=== PATIENT | male | born 1960 | race Caucasian/White ===

== ENCOUNTER 2020-03-04 18:08 | Inpatient (IN) | payer BC ==
[~2020-03-04] VITALS: Ht 180.3 cm; Wt 122.5 kg
--- NOTE | 2020-03-04 18:15 | NUR ---
PT BIBA [facility] FOR ALOC. PER MEDIC, PT WAS FOUND IN [facility] ALOC. PT BASELINE NORMALLY AAOX4 AND AMBULATORY PER STAFF. STAFF AT [facility] CHECKED REPORTS PT'S GLUCOSE WAS "HI." PT ARRIVED TO ED ON 2L O2 VIA N/C WITH IV ON LFA. PT WAS GIVEN NARCAN BY MEDICS BUT NO RESPONSE. GCS 12. PT APPEARS AGITATED WITH RAPID RESPIRATIONS AND HEART RATE. GLUCOSE UPON ARRIVAL WAS 217. MD NOTIFIED. PT'S ABDOMEN DISTENDED UPON PALPATION. PER MEDIC, PT WAS ADMITTED TO [facility] ON THE FOR DTS. NO 5150 ON HAND UPON ARRIVAL. PLACED ON FULL CM. AT BEDSIDE FOR MSE
[2020-03-04 18:16] VITALS: Ht 180.3 cm; Wt 122.5 kg
[2020-03-04 19:40] LABS: BASOPHIL % 0.3 % (0-2); PLATELET COUNT 198 x10^3mcL (130-400)
[2020-03-04 19:44] LABS: RED CELL DISTRIBUTION WIDTH 20.2 % (11.5-14.5)
[2020-03-04 19:46] LABS: CALCIUM 8.4 mg/dL (8.5-10.1); CARBON DIOXIDE 32.1 mmol/L (21-32); CHLORIDE SERUM 103 mmol/L (98-107); CREATININE SERUM 1.2 mg/dL (0.7-1.3); GFR1 > 60 mL/min; GLUCOSE SERUM 204 mg/dL (74-106); POTASSIUM SERUM 3.7 mmol/L (3.5-5.1); SODIUM SERUM 138 mmol/L (136-145)
--- NOTE | 2020-03-04 19:50 | NUR ---
PT CAME FROM FACILITY DUE TO ALOC - PT NOTED TO BE SLEEPING/SNORING - PT NOTED TO AROUSE TO PAIN WHEN OBTAINING BLOOD - PT WENT TO CT AND NOTED TO OPEN EYES AND AROUSE TO VERBAL STIMULI - UNABLE TO UNDERSTAND PT WHEN ATTEMPTING TO TALK - PT NOTED TO BE ABLE TO PULL PANTS UP INDEPENDENTLY - PT RETURNED FROM CT AND PLACED BACK ON FLOOR SURFACER - PT NOTED TO OPEN EYES AND ATTEMPT TO TALK TO RN BUT UNABLE TO UNDERSTAND PT COMMUNICATION - UNKNOWN IF THIS IS PT BASELINE - OBSERVED PT TO BE ABLE TO PULL SELF UP TO SITTING POSITION USING STRETCHER SIDE RAILS - NAD NOTED - ABCS INTACT WITH RESPIRIATIONS NOTED TO BE EVEN AND UNLABORED - PT ON 2L O2 NC - PT NOTED TO BE ABLE TO MOVE ALL EXTREMITIES WITH ROM WNL - PT IS AWAKE/ALERT.
[2020-03-04 19:51] LABS: ALBUMIN 2.8 g/dL (3.4-5.0); ALKALINE PHOSPHATASE 59 U/L (46-116); ALT/SGPT 39 U/L (16-63); AST/SGOT 13 U/L (15-37); BILIRUBIN TOTAL 0.2 mg/dL (0.20-1.00); CHOLESTEROL 173 mg/dL (<200); TOTAL PROTEIN, SERUM 5.9 g/dL (6.4-8.2)
[2020-03-04 19:56] LABS: rbc morphology (normal/abnorm) ABNORMAL (NORMAL)
[2020-03-04 20:38] LABS: UA SPECIFIC GRAVITY >=1.030 (1.005-1.035); microscopic required? YES; urine erythrocyte 1+ (NEGATIVE)
--- NOTE | 2020-03-04 20:52 | NUR ---
PATIENT IS COVID NEGATIVE. DR. WILL MADE AWARE.
[2020-03-04] MEDS ORDERED: ASPIRIN ADULT L81 M3 PO (20:53)
[2020-03-04] MEDS ORDERED: ATORVASTATIN CA10 M1 PO (20:53)
[2020-03-04] MEDS ORDERED: POLYETHYLE17 GM/Dos4 PO (20:54)
[2020-03-04] MEDS ORDERED: MUCINEX600 MG PO (20:54)
[2020-03-04] MEDS ORDERED: STIOLTO RESPIMA1 SPR IH (20:55)
[2020-03-04] MEDS ORDERED: THIAMINE HCL100 MG PO (20:55)
[2020-03-04] MEDS ORDERED: LEXAPRO20 MG PO (20:55)
[2020-03-04] MEDS ORDERED: SEROQUEL300 MG PO (20:56)
[2020-03-04] MEDS ORDERED: AUGMENTIN1 TA1 PO (20:58)
[2020-03-04] MEDS ORDERED: TYLENOL ARTHRI650 MG PO (20:58)
[2020-03-04] MEDS ORDERED: MOM PO (20:59)
[2020-03-04] MEDS ORDERED: MP PO (20:59)
[2020-03-04] MEDS ORDERED: AMBIEN5 MG PO (21:00)
[2020-03-04] MEDS ORDERED: ATIVAN1 MG PO (21:00)
[2020-03-04] MEDS ORDERED: NORCO1 TA2 PO (21:00)
[2020-03-04] MEDS ORDERED: PROAIR RES117 MCG/Ac INH (21:00)
[2020-03-04] MEDS ORDERED: DOCUSATE SODIU100 MG PO (21:01)
[2020-03-04 21:09] LABS: AMPHETAMINE QUAL UR NONE DETECTED (See below)
[2020-03-04 22:45] VITALS: BP 139/78
--- NOTE | 2020-03-04 22:56 | NUR ---
EVALUATED PT TO SEE IF HE NEEDS CPAP. PT ALOC. DIDNT FOLLOW COMMANDS. WILL RE-EVALUATE PT IN A COUPLE HOURS TO SEE IF THERE IS ANY IMPROVEMENT ON MENTAL STATUS.
--- NOTE | 2020-03-04 23:19 | NUR ---
RECEIVED PT FROM ER, PT ADMIT FOR METABOLIC ENCEPHALOPATHY. PT IS VERY LETHARGIC, BUT AROUSE TO PAIN, BUT UNABLE TO UNDERSTAND PT SPEECH. AND PT FALL INTO SLEEP RIGHT AWAY, UNABLE TO GET ANY INFORMATION FROM PT. UNABLE TO GET EMERGENCY VETERINARY VIROLOGIST INFORMATION. CALLED TO [facility]. SPOKE TO ALFONSO. UNABLE TO GET ANY INFOMRATION FROM [facility]. STAFF STATE CALL BACK TOMORROW TO MEDICAL RECORD OFFICE. GET ALL ADMISSION INFORMATION FROM TRANSFER DOCUMENT. LUNG SOUND DIM JOSH. NO S/S OF SOB. PT IS ON 2L/ MIN O2 VIA NC. PO2 98%. PT IS ON TELE 34, ST, NO S/S OF CHEST PAIN. BOWEL SOUND PRESENT ALL 4 QUADRANTS, DISTENTED. PEDAL PULSE PRESENT BOTH FEET, +2 EDEMA BLE. THERE ARE ERYTHEMA ON BOTH LEGS WITH SMALL SKIN TEAR AT TOP. IV AT LEFT FA, NO LEAKING, NO INFILTRATION. ALL ADLS ASSIST, ALL NEED MET, CALL LIGHT IN REACH, WILL CONTINUE TO MONITOR.
--- NOTE | 2020-03-04 23:30 | NUR ---
RECEIVED PT FROM RESOURCE NURSE, PT LETHARGIC, SPEECH MUMBLED AND HARD TO UNDERSTAND, PT SEEMS CONFUSED. RESPIRATION E/U ON 2 LPM OF O2 VIA NC, NO RESPIRATORY DISTRESS AT THIS TIME. IV TO LFA INTACT, SL AT THIS TIME, NO ERYTHEMA, NO INFILTRATION. SAFETY PRECAUTIONS IN PLACE, ROOM CLOSE TO NURSES STATION. CALL BUTTON WITHIN REACH, WILL CONTINUE TO MONITOR.
--- NOTE | 2020-03-05 00:42 | NUR ---
BLOOD SUGAR 163. PT HAS NOT ATE AND IS NOT ON ANY IV FLUIDS. SPOKE WITH MD. DR SERRANO, PER DOCTOR HOLD INSULIN COVERAGE TONIGHT. BLE ARE RED, WARM TO TOUCH, AND TENDER/ PAINFUL PER PT. UPDATED DR. SERRANO AND PER DOCTOR SHE WILL PUT IN AN ORDER FOR IV FLUIDS AND IV ANTIBIOTICS. WILL CONTINUE TO MONITOR.
[2020-03-05 02:24] VITALS: BP 139/78
--- NOTE | 2020-03-05 04:05 | NUR ---
RE-EVALUATED PT FOR CPAP THERAPY AND HE IS AWAKE AND ALERT. PT IS FOLLOWING COMMANDS AND ANSWERING TO QUESTIONS. PT STATED HE JUST STARTED WEARING CPAP AT NIGHT. PLACED PT ON CPAP FOR THE NIGHT AND HE IS TOLERATING WELL. CURRENT SETTINGS ARE CPAP 5, 30% FIO2.
--- NOTE | 2020-03-05 04:46 | NUR ---
PT COMPLAINING OF PAIN, PRN TORADOL IVP INEFFECTIVE. PT STATED HE USUALLY TAKES [place] 10/ 325 PO AT HOME AND IT IS INEFFECTIVE. DR. VELAZCO CALLED X 3 AND PAGED TO INFORM. PT ALSO HAVING ANXIETY AND TAKES ATIVAN 1 MG. WILL CONTINUE TO TRY TO GET A HOLD OF RESIDENT.
--- NOTE | 2020-03-05 05:40 | NUR ---
NORCO 10/ 325 GIVEN PER ORDER. WILL CONTINUE TO MONITOR.
[2020-03-05 05:48] VITALS: BP 135/72
[2020-03-05 06:35] LABS: BASOPHIL % 0.1 % (0-2); PLATELET COUNT 206 x10^3mcL (130-400)
[2020-03-05 06:51] LABS: CALCIUM 8.4 mg/dL (8.5-10.1); CARBON DIOXIDE 32.9 mmol/L (21-32); CHLORIDE SERUM 103 mmol/L (98-107); GFR1 > 60 mL/min; GLUCOSE SERUM 176 mg/dL (74-106); MAGNESIUM 1.7 mg/dL (1.8-2.4); PHOSPHOROUS 1.6 mg/dL (2.5-4.9); POTASSIUM SERUM 3.5 mmol/L (3.5-5.1); SODIUM SERUM 140 mmol/L (136-145)
[2020-03-05 07:03] LABS: RED CELL DISTRIBUTION WIDTH 20.5 % (11.5-14.5)
--- NOTE | 2020-03-05 07:30 | NUR ---
RECEIVED PT FROM PATTERN PUNCHER, PT IS SLEEPING THIS TIME. STABLE. NO SOB NOTED. DENIES ANY PAIN THIS TIME. AROUSABLE WITH VERBAL STIMULI. ORIENTED X3. SAFTEY PRECAUTIONS ARE IN PLACE. WILL MONITOR.
--- NOTE | 2020-03-05 07:30 | NUR ---
PT IN BED EATING BREAKFAST. PT EXPRESSING SLIGHT RELIEF OF PAIN FROM NORCO, I EDUCATED HIM ON THE ORDER'S FREQUENCY OF THE NORCO MEDICATION. PT UNDERSTOOD. PT USING ICE PACKS TO LOWER BODY TEMPERATURE. AM BATCH PLANT SUPERVISOR TOOK VITAL SIGNS, TEMPERATURE DECREASED TO WNL. PT STILL EXPERIENCING ANXIETY, MORNING RESIDENT WAS INFORMED OF PT'S CONCERN/ HOME MEDICATION OF ANTIVAN 1 MG PRN AND GABAPENTIN. AM RESIDENT TO F/U WITH ORDERS. ALL CONCERNS ADDRESSED, RESPIRATIONS E/U, REPORT GIVEN TO AM NURSE, CARE ENDORSED TO AM NURSE AT THIS TIME.
--- NOTE | 2020-03-05 07:45 | NUR ---
PT IS STABLE. SITTING UP IN THE BED AND EATING BREAKFAST.
[2020-03-05 08:14] VITALS: BP 100/64
--- NOTE | 2020-03-05 11:52 | NUR ---
PT STILL C/O BLE PAIN, 5/10 EVEN AFTER THE NORCO PO 5/325MG. INFORMED . HE SAID TO GIVEN ANOTHER DOSE OF 5/325MG NORCO AND GIVEN ORDER. PT IS STABLE. WILL REASSESS.
[2020-03-05 12:10] VITALS: BP 120/59
--- NOTE | 2020-03-05 12:52 | NUR ---
PT IS SLEEPING THIS TIME. NO SIGNS OF ANY PAIN.
--- NOTE | 2020-03-05 14:00 | NUR ---
PT RESTING IN BED COMFORTABLE. SLEEPING THIS TIME.
--- NOTE | 2020-03-05 14:57 | NUR ---
PT C/O ANXIETY. ADMINISTERED ATIVAN 1MG PO ORDERED. WILL MONITOR. PT IS STABLE.
[2020-03-05 16:21] VITALS: BP 142/84
--- NOTE | 2020-03-05 17:16 | NUR ---
PT TEMP IS 101.4. TYLENOL 650MG PO GIVEN ORDERED. WILL RECHECK THE TEMP AFTER AN HOUR. NORCO 10/325 MG PO WAS GIVEN FOR PT'S BLE PAIN,01/30 AT 1701. WILL REASSESS.
--- NOTE | 2020-03-05 17:50 | NUR ---
PT CALLED AND SAID HE IS HAVING SOB, PT TOOK HIS O2 OFF. SPO2 92% IN RA AND PUT O2 2L BACK ON AND SPO2 96% IN 2L N/C. PT IS HAVING ANXIETY AND WITHDRAWAL SYMPTOMS. HR FLUTUATING FROM 130'S TO 140. DENIES CHEST PAIN. INFORMED ABOUT THAT. HE CAME AND ASSESS THE PT. HE SAID PT HAVING WITH DRAWAL SYMPTOMS AND HE DOESNOT WANT TO GIVE MORE ATIVAN. PT RECEIVED ATIVAN PO 1MG AT 1457. GAVE COMFORTABLE POSITION AND RELAXATION TECH. WILL MONITOR.
--- NOTE | 2020-03-05 18:16 | NUR ---
PT TEMP IS 100.4 THIS TIME AFTER TYLENOL PO. COOLING MEASURES ON. WILL RECHECK AGAIN. PT SOB GETTING BETTER, HR 128 THIS TIME. RESIDENT DOCTOR AWARE. DENIES CHEST PAIN. WILL MONITOR.
--- NOTE | 2020-03-05 19:02 | NUR ---
PT RESTING IN BED, REMAINS STABLE. DENIES ANY PAIN. SPO2 95% IN O2 2L VIA N/C. GAVE REPORT TO SCALE OPERATOR NURSE.
--- NOTE | 2020-03-05 19:55 | NUR ---
RECEIVED PT FROM AM NURSE AT THIS TIME, AA/O X 4 ABLE TO MAKE NEEDS KNOWN, CLEAR SPEECH, DENIES HEADACHE/ DIZZINESS. TELE MONITOR #34, ST. DENIES CHEST PAIN/ CHEST PRESSURE. PULSES PALPABLE, 2+ EDEMA TO BLE. LUNG SOUNDS DIMINISHED TO BLL. RESPIRATIONS E/U ON 2 LPM OF O2 VIA NC. ACTIVE BS X 4 QUADS, ABD FIRM AND DISTENDED. VOIDS USING URINAL. WEAKNESS TO BLE, REDNESS TO BLE, WARM TO TOUCH. IV TO LFA INTACT, SL, FLUSHING WELL. NO ERYTHEMA/ NO INFILTRATION DENIES PAIN AND ANXIETY AT THIS TIME. CALL BUTTON WITHIN REACH, WILL CONTINUE TO MONITOR.
[2020-03-05 20:06] VITALS: BP 131/71
--- NOTE | 2020-03-05 21:00 | NUR ---
TEMPERATURE OF 100.4. UNABLE TO GIVE TYLENOL UNTIL 0100 AM PER EMAR, ORDER IS Q8. ICE PACKS AND COOLING MEASURES APPLIED. WILL CONTINUE TO MONITOR.
--- NOTE | 2020-03-05 22:50 | NUR ---
RE-CHECKED TEMPERATURE AT 2250, TEMPERATURE DECREASED TO 98.9. WILL CONTINUE TO MONITOR.
--- NOTE | 2020-03-05 23:15 | NUR ---
PT COMPLAINED OF PAIN TO BLE AND LOWER BACK PAIN MEDICINE GIVEN PER EMAR. WILL CONTINUE TO MONITOR.
--- NOTE | 2020-03-06 00:15 | NUR ---
PT IN BED RESTING WITH EYES CLOSED, BUT EASILY AROUSABLE. RESPIRATIONS E/U ON 2 LPM OF O2 VIA NASAL CANNULA. NO S/S OF PAIN OR DISTRESS. FALL PRECAUTIONS IN PLACE, WILL CONTINUE TO MONITOR.
[2020-03-06 04:30] VITALS: BP 100/72
--- NOTE | 2020-03-06 05:30 | NUR ---
PT COMPLAINED OF PAIN, NORCO GIVEN PER EMAR.
--- NOTE | 2020-03-06 06:43 | NUR ---
PT COMPLAINED OF ANXIETY, PRN ATIVAN GIVEN EMAR. PT SLEPT IN INTERVALS THROUGHOUT THE NIGHT, BUT EASILY AROUSABLE. RESPIRATIONS E/U ON 2 LPM OF O2 VIA NC, SPO2 96%. ALL NEEDS MET AT THIS TIME, CALL BUTTON WITHIN REACH, WILL ENDORSE CARE TO AM NURSE.
[2020-03-06 07:30] VITALS: BP 125/71
[2020-03-06 07:34] LABS: BASOPHIL % 0.2 % (0-2); PLATELET COUNT 199 x10^3mcL (130-400)
--- NOTE | 2020-03-06 07:41 | NUR ---
REPORT TAKEN FROM FOOD ADVISER NURSE, PATIENT FOUND TO BE AWAKE AND ALERT, NO ACUTE DISTRESS OBSERVED OR REPORTED. PATIENT IS REPORTS DISCOMFORT IN HIS LEGS, EDEMA AND ERYTHEMA OBSERVED TO BLE. PATIENT WAS MEDICATED PRIOR TO MY SHIFT FOR PAIN, BUT PATIENT REQUEST INCREASED FREQUENCY, WILL CONSULT PROVIDER.
[2020-03-06 08:02] LABS: RED CELL DISTRIBUTION WIDTH 20.7 % (11.5-14.5)
[2020-03-06 08:18] LABS: CALCIUM 8.2 mg/dL (8.5-10.1); CARBON DIOXIDE 32.5 mmol/L (21-32); CHLORIDE SERUM 98 mmol/L (98-107); GFR1 > 60 mL/min; GLUCOSE SERUM 105 mg/dL (74-106); PHOSPHOROUS 2.5 mg/dL (2.5-4.9); POTASSIUM SERUM 3.7 mmol/L (3.5-5.1); SODIUM SERUM 136 mmol/L (136-145)
--- NOTE | 2020-03-06 10:27 | NUR ---
IV ABX SCHEDULED FOR 1000 HAS NOT BEEN DELIVERED BY PHARMACY AT THIS TIME, WILL CALL AND GIVE WHEN DELIVERED TO UNIT
--- NOTE | 2020-03-06 10:58 | NUR ---
PATIENT AMBULATED TO RESTROOM FOR A BM. WHEN HE RETURNED TO THE BED HE REPORTED SOB AND PAIN IN LOWER LEGS. PATIENT PUT ON 3 LITERS OF O2 VIA NC, VITALS ASSESSED AT THAT TIME. HR 110 AND O2 SAT 97%. PATIENT GIVEN TIME TO REST, WILL CONTINUE TO MONITOR.
[2020-03-06 11:11] LABS: rbc morphology (normal/abnorm) NORMAL (NORMAL)
--- NOTE | 2020-03-06 11:20 | NUR ---
I CALLED THE ER AT THIS TIME TO FIND OUT IF THE PATIENT LEFT A PAIR OF SHOES IN THE ER WHEN HE WAS ADMITTED. THE ED CHIEF ORDER DISPATCHER CHECKED LOST AND FOUND AND WAS NOT ABLE TO LOCATE THE SHOES. I ALSO CALLED [facility] TO SEE IF HE MAY HAVE LEFT THEM THERE BUT WAS UNABLE TO REACH A NURSE. AT THIS TIME THE SHOES ARE NOT ACCOUNTED FOR.
--- NOTE | 2020-03-06 12:00 | NUR ---
all accu checks are being used at this time and have been for the last 30 minutes, will check bs when machine is availible.
[2020-03-06 12:17] VITALS: BP 108/58
[2020-03-06 16:58] VITALS: BP 136/80
--- NOTE | 2020-03-06 18:18 | NUR ---
PATIENT WAS GIVEN BELONGINGS FROM GLASS SANDER
--- NOTE | 2020-03-06 19:49 | NUR ---
REPORT GIVEN TO GREASE REFINING SUPERVISOR NURSE, CARE ENDORSED
[2020-03-06 21:27] VITALS: BP 112/78
--- NOTE | 2020-03-07 00:04 | NUR ---
ATIVAN 1 MG PO GIVEN AT THIS TIME REQUESTED.BS CHECKED @ 128 MG/DL.SNACKS PROVIDED.WILL CONTINUE TO MONITOR.
--- NOTE | 2020-03-07 00:46 | NUR ---
ASSISTED TO BR AND HAD BM X1 TO SOFT STOOL.TOOK OVER PT'S CARE.WILL ADMINISTER DUE TRAZODONE AND SEROQUEL AT THIS TIME.
--- NOTE | 2020-03-07 02:47 | NUR ---
PT SLEEPING SOUNDLY AT THIS TIME.BREATHING EASY AND NON-LABORED.NO S/S OF PAIN OR DISCOMFORT.WILL CONTINUE TO MONITOR.
--- NOTE | 2020-03-07 03:04 | NUR ---
03/06/202029- received pt in bed sitting up. Introduced myself. Pt alert and oriented x3 -4 verbal. patient expressed not being happy with life. He stated that he was laid off at his last job with no pension and gratuity. Stated he is not rich and over all unhappy with his life. He c/o that he has leg pains- and that the dayshift did not give him any medications for pain and has been calling for [facility] for leg pains . However, he got all his pain medicatios up to date. Per off going nurse, patient is not due for pain medication untill 1999. I reassured him. He received [place] 10/325mg po for pain at 2019. Pt seems manipulative. Will continue to monitor his behaviour difficult and manipulative him. At 2019 patient was given [place] 10/325mg Po for pains. in no respiratory distress. Will continue to monitor behavior
--- NOTE | 2020-03-07 03:23 | NUR ---
2330- Pt was given IV Morphine Sulphate 2mg/1ml Iv. Pt exhibited some behavior issues-very manipulative, unappreciative and a complainant. He is always seeking for pain medicine even when, it is not yet time to receive pain medication. He complained that he was n't given all his Morphine IV one ml injection. It was clarified to him that he got all his 1ml solution pushed into his vein. Charge nurse was a witness that pt did get 1ml/2mg dose of morphine and all 1 ml went thru into his vein. Again 2minutes after the IV Morphine - pt c/o that the medicine was not effective. He was clarified and made aware that it takes atleast 15-30minutes to see the effect of the Iv push Morphine. Pt is not very trusting of the care - in the midst of the best care and all demands met. He likes to manipulate the nurses and cause division. Patient can never be pleased- in the midst of excellent care and all his demand being met and all request granted him. he is very belittling- and talks down and makes inferences-- wants to make sure some nurses enter trouble because he don't like them. he thinks he can pick one nurse in preference to the other based on their looks. Pt was seen and evaluated this shift by the psychiatrist- Dr Perez.
--- NOTE | 2020-03-07 04:49 | NUR ---
PT SLEPT WELL AFTER TRAZODONE AND SEROQUEL THAT WAS GIVEN EARLIER.NO S/S OF PAIN OR DISCOMFORT.NO ASE NOTED FROM ANCEF IV ATB.BREATHING EASY AND NON-LABORED.O2 @ 2L/MIN VIA N/C.ALL NEEDS MET.WILL CONTINUE TO MONITOR.
[2020-03-07 05:58] VITALS: BP 134/76
--- NOTE | 2020-03-07 07:15 | NUR ---
SEEN AOX3, NOT IN DISTRESS, TELE 34, ST, PALPABLE PULSES, BLE EDEMA, CTA ON BLF, 2LPM VIA NC, O2 SAT 97%, +BS, VOIDS FREELY, GENERALIZED WEAKNESS, AMBULATORY, SCAB AND REDNESS BLE, NO PAIN AT THIS TIME, IV INTACT LFA, NO REDNESS OR SWELLING,CALL LIGHT WITHIN REACH, BED AT LOWEST POSITION, SIDE RAILS UP.
[2020-03-07 07:35] VITALS: BP 136/70
[2020-03-07 07:59] LABS: BASOPHIL % 0.2 % (0-2); PLATELET COUNT 236 x10^3mcL (130-400)
[2020-03-07 08:15] LABS: CALCIUM 8.6 mg/dL (8.5-10.1); CARBON DIOXIDE 34.4 mmol/L (21-32); CHLORIDE SERUM 97 mmol/L (98-107); CREATININE SERUM 0.9 mg/dL (0.7-1.3); GFR1 > 60 mL/min; GLUCOSE SERUM 108 mg/dL (74-106); POTASSIUM SERUM 3.6 mmol/L (3.5-5.1); SODIUM SERUM 137 mmol/L (136-145)
--- NOTE | 2020-03-07 09:50 | NUR ---
MEDICATIONS GIVEN PER EMAR. ATIVAN PO GIVEN FOR ANXIETY. MORPHINE IVP GIVEN FOR LEG PAIN 04/01
--- NOTE | 2020-03-07 11:47 | NUR ---
CBG 109. NO INSULIN REQUIRED
[2020-03-07 12:47] VITALS: BP 115/80
--- NOTE | 2020-03-07 13:21 | NUR ---
MEDICATION GIVEN PER EMAR. MORPHINE IVP GIVEN FOR LEG PAIN 03/02
[2020-03-07 17:03] VITALS: BP 136/70
--- NOTE | 2020-03-07 17:48 | NUR ---
MEDICATION GIVEN PER EMAR. MORPHINE IVP GIVEN FOR LEG PAIN, 01/30
--- NOTE | 2020-03-07 17:56 | NUR ---
ATIVAN PO GIVEN FOR ANXIETY
[2020-03-07 20:29] VITALS: BP 114/76
--- NOTE | 2020-03-08 01:57 | NUR ---
Recievedreport from AM nurse. Received pt watching Tv. AOx3. Tele 34, ST, no S/S of distress noted. Palpable pulses, BLE edema, CTA on BLF, 2L NC w/ sat 98%, voids freely, genarlized weakness, ambulatory with assistance, scab and redness BLE, IV intact and patent infusing, no redness or swelling, call light within reach, bed in lowest position, side rails up. Pt complains of pain in leg 01/30. Continually asking for pain med per AUG schedule. Per pt pain medication does not provide relief. Will continue to monitor.
[2020-03-08 05:18] VITALS: BP 126/89
[2020-03-08 06:46] LABS: BASOPHIL % 0.4 % (0-2); PLATELET COUNT 251 x10^3mcL (130-400)
[2020-03-08 06:51] LABS: CALCIUM 8.8 mg/dL (8.5-10.1); CARBON DIOXIDE 36.2 mmol/L (21-32); CHLORIDE SERUM 97 mmol/L (98-107); GFR1 > 60 mL/min; GLUCOSE SERUM 103 mg/dL (74-106); POTASSIUM SERUM 3.9 mmol/L (3.5-5.1); SODIUM SERUM 135 mmol/L (136-145)
[2020-03-08 07:07] LABS: RED CELL DISTRIBUTION WIDTH 19.6 % (11.5-14.5)
--- NOTE | 2020-03-08 07:30 | NUR ---
Patient received from production supervisor off shift. Patient is sleeping this time, no signs of pain. Assessed and will document. Easily aoursable with verbal stimuli. No SOB noted. Safety precautions in place. Will continue to monitor.
[2020-03-08 08:53] VITALS: BP 129/73
--- NOTE | 2020-03-08 09:18 | NUR ---
PATIENT COMPLAINS OF FEELING ANXIOUS. ATIVAN 1MG PO GIVEN ORDERED. WILL CONTINUE TO MONITOR
[2020-03-08] MEDS ORDERED: DULOXETINE HYDR30 MG PO (10:45)
[2020-03-08] MEDS ORDERED: LYRICA25 M1 PO (10:45)
[2020-03-08] MEDS ORDERED: TRA50 PO (10:45)
[2020-03-08] MEDS ORDERED: L20 PO (10:46)
[2020-03-08] MEDS ORDERED: MIRUD PO (10:46)
[2020-03-08] MEDS ORDERED: COL100 PO (10:46)
[2020-03-08] MEDS ORDERED: LAC30L PO (10:46)
[2020-03-08] MEDS ORDERED: SERO100 PO (10:47)
[2020-03-08] MEDS ORDERED: ECO81 PO (10:47)
[2020-03-08] MEDS ORDERED: ANC1I IV (10:51)
--- NOTE | 2020-03-08 11:00 | NUR ---
INFORM ROLL SHOP SUPERVISOR ABOUT PT REFUSING SCD BECAUSE OF PAIN AND REDNESS IN BLE. ROLL SHOP SUPERVISOR SAID SHE WILL ORDER HEPARIN SQ. PT IS STABLE.
--- NOTE | 2020-03-08 12:00 | NUR ---
ASSIGNMENT CHANGED. PT IS STABLE. GAVE REPORT TO MAGED ANGULO FOR CONTINUE CARE. DENIES PAIN THIS TIME.
--- NOTE | 2020-03-08 12:30 | NUR ---
RECEIVED PT FROM FRANCISCO LYNNE. PT REMAINS STABLE AT THIS TIME. PT AAOX4. PT ON TELE #34. DENIES CHEST PAIN. PT ON RA LUNGS CTAB. NO SOB OR DISTRESS NOTED. IV TO LFA. CDI AND PATENT. ALL COMFORT AND SAFETY MEASURES IN PLACE. WILL CONTINUE TO MONITOR PT.
[2020-03-08 12:31] VITALS: BP 140/80
--- NOTE | 2020-03-08 17:45 | NUR ---
IN TO SEE PT. PT IS STABLE W/ NO ACUTE CHANGES TO STATUS. ALL QUESTIONS AND CONCERNS ADDRESSED. ALL NEEDS MET AT THIS TIME. WILL CONTINUE TO MONITOR PT.
[2020-03-08 17:49] VITALS: BP 126/69
--- NOTE | 2020-03-08 19:19 | NUR ---
Received pt. from day shift, currently resting in bed w/ eyes closed. Pt. is easily arousable using verbal stimuli. Pt. is a/o x4, able to make needs known, able to follow commands, no c/o h/a at this time. Pt. is breathing e/u on 2L via NC, no s/o acute distress or SOB. Pt. noted to be ST at times when up and about and when anxious, but no c/o chest pain at this time. Pt. noted to have BLE cellulitis, c/o pain more on the RLE, but tolerable at this time. Pt. given [place] and morphine throughout the day, will medicate as ordered. IV site at this time patent and dressing CDI on RFA 22g, Saline locked. otherwise, pt. stable, will cont. to monitor pt.
--- NOTE | 2020-03-08 19:30 | NUR ---
REPORT GIVEN TO ALEKSANDER LYNNE. PT REMIANED STABLE THROUGHOUT MY SHIFT. ALL QUESTIONS AND CONCERNS ADDRESSED. ALL NEEDS MET AT THIS TIME. ALL CARES ENDORSED.
[2020-03-08 20:27] VITALS: BP 112/66
--- NOTE | 2020-03-09 01:00 | NUR ---
Pt. c/o of pain in BLE, medicated w/ pain medications as ordered. Pt. reinforced education about DM, all needs and concerns adressed.
[2020-03-09 05:07] VITALS: BP 111/60
--- NOTE | 2020-03-09 05:46 | NUR ---
Pt. resting well throughout shift, changed rooms d/t pt. needing original room. Pt. tolerated well, no acute changes will cont. to monitor pt and endorse care to next shift RN.
--- NOTE | 2020-03-09 07:30 | NUR ---
RECEIVED REPORT FROM SHERRIE LYNNE. PT IS AAOX4. PT ON TELE #34. PT DENIES CHEST PAIN. PT ON 2LNC. DENIES SOB OR DISTRESS AT THIS TIME. IV TO RFA, CDI AND HEP LOCKED. ALL COMFORT AND SAFETY MEASURES IN PLACE. BED IN LOW POSITION. 2 SIDE RAILS UP. CALL LIGHT WITH IN REACH. ALL QUESTIONS AND CONCERNS ADDRESSED. ALL NEEDS MET AT THIS TIME. WILL CONTINUE TO MONITOR PT.
[2020-03-09 08:46] VITALS: BP 98/69
--- NOTE | 2020-03-09 10:55 | NUR ---
IN TO SEE PT. PT AGITATED DUE TO PAIN MEDICATION NOT BEING ADMINISTERED @1000. PT EDUCATED ON PRN MEDICATION ADMINISTRATION. ALL QUESTIONS AND CONCERNS ADDRESSED. ALL NEEDS MET AT THIS TIME. WILL CONTINUE TO MONITOR PT.
--- NOTE | 2020-03-09 13:15 | NUR ---
PT REMAINS STABLE AT THIS TIME W/ NO ACUTE CHANGE. ALL QUESTIONS AND CONCERNS ADDRESSED. WILL CONTINUE TO MONITOR PT.
[2020-03-09 13:37] VITALS: BP 127/69
[2020-03-09 18:17] VITALS: BP 108/62
--- NOTE | 2020-03-09 19:00 | NUR ---
RN DISCUSSED WITH PATIENT, MEDICAL PLAN OF CARE. DISCUSSED FALL AND SAFETY PRECAUTIONS AND MEDICATION REGIMEN. PATIENT RECEPTIVE TO RN INSTRUCTIONS. VSS. NO ACUTE DISTRESS NOTED.
--- NOTE | 2020-03-09 19:00 | NUR ---
PATIENT RECIEVED IN BED ALERT AND ORIENTED X 4. PATIENT RECEPTIVE TO RN PLAN OF CARE. DISCUSSED MEDICATION REGIMEN, FALL AND SAFETY PRECAUTION AND MEDICAL CARE. VSS. PATIENT RECEPTIVE TO RN INSTRUCTIONS. DISCUSSED FALL AND SAFETY PRECAUTIONS AND MEDICATION REGIMEN. VSS. NO ACUTE DISTRESS NOTED.
--- NOTE | 2020-03-09 19:00 | NUR ---
DISCUSSED WITH PATIENT RN PLAN OF CARE. DISCUSSED MEDICATION REGIMEN, MEDICAL CARE AND FALL AND SAFETY PRECAUTIONS. BED IN LOWER POSITION. SR UP X 2. VSS. NO ACUTE DISTRESS NOTED.
--- NOTE | 2020-03-09 19:20 | NUR ---
REPORT GIVEN TO JACKIE LYNNE. PT REMAINED STABLE THROUGHOUT MY SHIFT W/ NO ACUTE CHANGES TO STATUS. ALL QUESTIONS AND CONCERNS ADDRESSED. ALL NEEDS MET AT THIS TIME. ALL CARES ENDORSED.
[2020-03-09 20:53] VITALS: BP 132/65
[2020-03-10] VITALS: BP 122/70
--- NOTE | 2020-03-10 | NUR ---
PATIENT SLEEPING DURING ROUNDING, EASILY AROUSED. FALL AND SAFETY PRECAUTIONS MAINTAINED. VSS. NO ACUTE DISTRESS NOTED.
[2020-03-10 04:00] VITALS: BP 126/74
--- NOTE | 2020-03-10 04:10 | NUR ---
PATIENT SLEEPING DURING ROUNDING, EASILY AROUSED. FALL AND SAFETY PRECAUTIONS MAINTAINED. VSS. NO ACUTE DISTRESS NOTED.
[2020-03-10 07:54] VITALS: BP 137/81
[2020-03-10 12:55] VITALS: BP 117/74
--- NOTE | 2020-03-10 16:54 | NUR ---
Initial Nutrition Assessment: HyunA YOSEF PHAN 59M MR Dx: ALOC, metabolic encephalopathy PMHx: Psych, COPD PSHx: none noted Labs: (03/08) H/H 10.8/33L, Na 135L, Cl 97L, (03/04) A1C 7.8H, AST 13L, albumin 2.8L Meds: [place], Ancef, miralax, Ativan, lyrica, heparin sodium, Zofran, Cymbalta, Lipitor, aspirin, Mucinex, Lasix, Colace, Seroquel, desyrel, Xopenex, Humulin, Tylenol Diet: [facility] PO intake since admission: 50-100% x 9 meals with average PO intake of 75% Ht: 180.34cm/71in Wt: 122.47kg/269lbs BMI: 37.7 Bed scale: 118.8KG/261lbs IBW: 78.18kg/172lbs %IBW: 156.65% ABW: 89kg UBW: pt not able to recall Age: 59 Food Allergies: Onion, walnut Edema: +2 edema noted to BLE Last BM: 03/08 Skin: sabs abrasion to BLE Efraín: 21 Per H and P (03/04) The patient is a 59-year-old Male who was brought in by EMS from [facility] for altered mental status today, this is below his baseline. No other history was provided. The remainder of the history and review of systems are limited due to the patient's clinical condition. Pt was admitted with dx: Toxic encephalopathy 2/2 drug OD, hypercapnic respiratory failure, DMOOC, BLE venous stasis ulcers, DVT RD Note (03/10) Pt was seen lying in bed with no signs of distress during visit. Pt denied GI distress and reported tolerating diet with a fair appetite. Pt reported 40lbs of weight gain in 6 months, but could not recall his usually weight before. At home, pt takes MVI, vitamin B, D, and folic acid. Pt also followed a regular diet at home. Additionally, pt was not doing any physical exercise, but pt said he would like to walk around once PT is here. Visually examined pt's BLE, pt did not have open wound. Two scabs was observed to BLE. Problem with: N/V/D/C: none per pt Problems with: Chewing: Swallowing: none per pt Current appetite: none per pt. Recent wt change: 40 lbs wt gain in 6 months %wt change: unknown d/t pt not knowing usual weight Height:5'9" Vitamin/Supplement use: MVI, vitamin B, C, folic acid Special diet at home: Regular Physical activity: no per pt Nutrition education given (specify specific nutrition education and handout given): Education on diabetic diet was provided. Provided example of foods that increases blood sugar and alternatives for refine grains. Explained the portion sizes of carbohydrate and the importance of carb counting. Written education "Type 2 Diabetes Nutrition Therapy", "Diabetes Label Reading Tips" from [facility] were provided. Pt acknowledged and verbalized understanding. Food-drug interactions? Education given? n/a Estimated Nutritional Needs Based on adjusted body weight (89kg) Energy: 7467-7884 kcal/day (20-25 kcal/kg for weight reduction) Protein: 71-89 g/day (0.8-1 g/kg for maintenance) Fluid: 9371-5571 mL/day (1 mL/kcal) Nutrition Diagnosis: 1. Impaired nutrition utilization r/t endocrine dysfunction a/e/b pt elevated A1C 7.8. 2. Obese Class 2 r/t imbalance energy intake and output a/e/b pt reported 40 lbs weight gain in 6 months and sedentary lifestyle. Intervention 1. Recommend continue CCHO diet as tolerate Monitor/Evaluate Goal: PO intake at least 75% of estimated needs Monitor: PO intake, Labs, GI function F/U in 3-5 days as moderate risk 03/13-
--- NOTE | 2020-03-10 16:55 | NUR ---
1. Recommend continue CCHO diet as tolerate
[2020-03-10 17:18] VITALS: BP 121/79
[2020-03-10 20:01] VITALS: BP 146/86
--- NOTE | 2020-03-10 20:10 | NUR ---
PATIENT RECIEVED IN BED ALERT AND ORIENTED X 4. RN DISCUSSED WITH PATIENT MEDICAL PLAN OF CARE. DISCUSSED FALL AND SAFETY PRECAUTIONS, MEDICATION REGIMEN. RESPIRATIONS EVEN AND NONLABORED. NO ACUTE DISTRESS NOTED.
--- NOTE | 2020-03-10 23:56 | NUR ---
PATIENT SLEEPING DURING ROUNDING, EASILY AROUSED. VITALS SIGNS STABLE. RESPIRATIONS EVEN AND NONLABORED. VSS. NO ACUTE DISTRESS NOTED.
--- NOTE | 2020-03-11 00:17 | NUR ---
PATIENT SLEEPING DURING ROUNDING, EASILY AROUSED. NO COMPLAINT OFFERED OF PAIN, REPOSITIONED FOR COMFORT. VSS. NO ACUTE DISTRESS NOTED.
[2020-03-11 05:14] VITALS: BP 101/78
--- NOTE | 2020-03-11 06:24 | NUR ---
PATIENT SLEEPING DURING ROUNDING EASILY AROUSED. VSS. NO COMPLAINT OFFERED PAIN, REPOSITIONED FOR COMFORT. RESPIRATIONS EVEN AND NONLABORED. NO ACUTE DISTRESS NOTED.
[2020-03-11 08:34] VITALS: BP 114/75
[2020-03-11 12:49] VITALS: BP 102/70
[2020-03-11 17:15] VITALS: BP 121/71
--- NOTE | 2020-03-11 19:53 | NUR ---
RECIEVED PATIENT SITTING ON BED, NOT IN ANY FORM OF DISTRESS, RESPIRATIONS EVEN AND UNLABORED, NO COMPLAINS AT THIS TIME, WILL CONTINUE TO CHECK ON PATIENT
[2020-03-11 20:49] VITALS: BP 144/73
[2020-03-12 05:44] VITALS: BP 122/81
--- NOTE | 2020-03-12 06:38 | NUR ---
PT SLEEPING COMFORTABLY, NO ACUTE DISTRESS NOTED, FINGERSTICK DONE, 123 MG/DL, NO COVERAGE GIVEN AT THIS TIME, WILL ENDORSE TO INCOMING RN.
[2020-03-12 08:48] VITALS: BP 112/79
[2020-03-12 12:31] VITALS: BP 117/81
[2020-03-12 16:34] VITALS: BP 112/69
[2020-03-12 17:24] VITALS: BP 112/69
--- NOTE | 2020-03-12 18:21 | NUR ---
PATIENT A&OX4, AMBULATED TO THE BATHROOM. ANCEF IV GIVEN X2. PATIENT CONTINUE TO COMPLAINS OF PAIN, NORCO GIVE X2 DOSE WITH GOOD RESULTS. PATIENT HAD EPISODES OF ANXIETY, ATIVAN GIVEN X2 DOSE. VITAL SIGNS STABLE. WILL CONTINUE TO MONITOR PATIENT
[2020-03-12 20:34] VITALS: BP 114/63
--- NOTE | 2020-03-12 21:21 | NUR ---
PT REFUSING TO GO ON CPAP TONIGHT. STATES IT IS INTOLERABLE TO WEAR. NO RESPIRATORY DISTRESS NOTED ON 2L NASAL CANNULA. WILL CONTINUE TO MONITOR.
--- NOTE | 2020-03-12 22:30 | NUR ---
MEDICATED PT WITH NORCO FOR BILAT LOWER EXTR 7/10, PER RT PT REFUSED CPAP FOR THE NIGHT , NO RESP DISTRESS NOTED ,ON 2L N/C SAT 97%, NO ACUTE DISTRESS NOTED AT THE MOMENT , CALL LIGHT WITHING PT'S REACH , WILL CON'T TO MONITOR AND ASSIST PT WITH CARE .PT C/O ANXIETY ATIVAN IS NOT DUE .
--- NOTE | 2020-03-13 05:50 | NUR ---
PT'S IN BED WITH EYES CLOSED . TELE NSR HR 78
[2020-03-13 06:54] VITALS: BP 137/75
--- NOTE | 2020-03-13 06:55 | NUR ---
MEDICATED PT WITH NORCO FOR PAIN BILAT LOWER EXT 11/30. NO ACUTE DISTRESS NOTED, TLE ST ,HL PATENT
[2020-03-13 08:30] VITALS: BP 114/70
--- NOTE | 2020-03-13 08:55 | NUR ---
AT 0715 - RECEIVED PATIENT FROM NIGHT NURSE. SLEEPING. RESPIRATIONS REGULAR. AT 0755 - AWAKE, ALERT AND ORIETNED X 4. SITTING UP IN BED EATING BREAKFAST. REPORTS SOME RELIEF OF PAIN AFTER RECEING NORCO EARLIER. NOW C/O ANXIETY AND GIVEN ATIVAN PER EMAR.
--- NOTE | 2020-03-13 10:35 | NUR ---
MEDICATED WITH NORCO PER EMAR.
[2020-03-13 14:07] VITALS: BP 114/64
[2020-03-13 17:37] VITALS: BP 114/60
[2020-03-13 19:14] VITALS: BP 114/60
--- NOTE | 2020-03-13 19:43 | NUR ---
AT 1800 - RECEIVED WORD FROM CASE MANAGEMENT THAT PATIENT IS DISCHARGING TO [facility] [id number]. PATIENT ANXIOUS ABOUT THE TRANSFER. AT 1845 - MEDICATED WITH NORCO PER EMAR. AT 1925 - COPIES OF PRINTED DISCHARGE INSTRUCTIONS GIVEN TO PATIENT. CARE ENDORSED TO NIGHT NURSE.
--- NOTE | 2020-03-13 20:11 | NUR ---
REPORT GIVEN TO NURSE MARRERO AT [facility]. THEY REQUESTED THAT PATIENT BE GIVEN HIS EVENING MEDS BEFORE HE GETS TRANFERRED. THEY ALSO REQUESTED PRESCRIPTION FOR NORCO. THIS INFORMATION WAS ENDORSED TO NIGHT CHARGE NURSE AND NIGHT NURSE.
--- NOTE | 2020-03-13 21:15 | NUR ---
D/C PT VIA [facility] GOING TO [facility]. PT IS AWAKE/ ALERT, GCS 15, NO DISTRESS NOTED AT 3L OXYGEN VIA NC. AMBULATORY WITH STEADY GAIT AND NO SKIN BREAKDOWN NOTED. PT REFUSED TO TAKE HIS MEDICATIONS AND PREFERS TO TAKE IT AT THE FACILITY. IV WAS LEFT IN PLACE PER ENDORSEMENT FROM DAYSHIFT RN TO TRANSFER PT WITH THE IV. ALL BELONGINGS WERE HANDED TO THE TRANSPORT TEAM. EDUCATION WAS PROVIDED AND D/C PACKET WAS HANDED TO THE PT, PT VERBALIZED UNDERSTANDING OF ALL TEACHINGS.
== END 2020-03-13 21:18 | DRG 917 ==
LOC: ED 18:08 → DU 20:30 → MU 03-13 11:38
PROVIDERS: Emergency Medicine; Family Medicine; ADMIT Internal Medicine; ATTEND Internal Medicine
DX: T50.991A Poisoning by other drugs, medicaments and biological substances, accidental (unintentional), initial encounter (principal); G92 Toxic encephalopathy; J96.92 Respiratory failure, unspecified with hypercapnia; F33.2 Major depressive disorder, recurrent severe without psychotic features; Z20.828 Contact with and (suspected) exposure to other viral communicable diseases; J44.9 Chronic obstructive pulmonary disease, unspecified; F41.9 Anxiety disorder, unspecified; E66.9 Obesity, unspecified; I10 Essential (primary) hypertension; Z68.29 Body mass index [BMI] 29.0-29.9, adult; Z79.82 Long term (current) use of aspirin; Z79.899 Other long term (current) drug therapy; Y92.098 Other place in other non-institutional residence as the place of occurrence of the external cause
CPT/HCPCS: 36600; 82962; 83880; 97110-GP; 97116-GP; 97530-GP; G0378; G0480; J0295; J0690; J0696; J1644; J1885; J2270; J2310; J2405; J3475; J7030; J7050; J7626; Q0092